=== PATIENT | female | born 1995 | race Caucasian/White ===

== ENCOUNTER 2020-01-06 15:56 | Outpatient (CLI) | payer OTHER ==
[~2020-01-06] VITALS: Ht 162.6 cm; Wt 86.8 kg
[2020-01-06 16:14] VITALS: BP 101/66; PULSE 122; TEMP 98.9
[2020-01-06] MEDS ORDERED: LIALDA 1.2 GM1.2 GM PO (16:26)
[2020-01-06] MEDS ORDERED: PROVENTIL0.09 MG/A1 IH (16:26)
[2020-01-06] MEDS ORDERED: PNV-DHA1 SGL PO (16:27)
[2020-01-06] MEDS ORDERED: TYLENOL 500MG500 MG PO (16:28)
[2020-01-06 16:30] VITALS: BP 103/62; PULSE 107
[2020-01-06 16:42] VITALS: PULSE 10
== END 2020-01-06 16:55 | disposition home or self-care (01) ==
LOC: LDRO 15:56
DX: O36.8130 Decreased fetal movements, third trimester, not applicable or unspecified (principal); O26.893 Other specified pregnancy related conditions, third trimester; R25.2 Cramp and spasm; Z3A.37 37 weeks gestation of pregnancy

== ENCOUNTER 2020-01-10 10:49 | Outpatient (CLI) | payer OTHER ==
[~2020-01-10] VITALS: Ht 162.6 cm; Wt 88.2 kg
[~2020-01-10 10:49] MED LIST: LIALDA 1.2 GM1.2 GM PO; PNV-DHA1 SGL PO; PROVENTIL0.09 MG/A1 IH; TYLENOL 500MG500 MG PO
--- NOTE | 2020-01-10 10:55 | NUR ---
1055- Pt arrives on unit ambulatory with complaints of cramping since 0300 last night and possible SROM. Pt into bathroom to change into gown. 1100- Pt into bed, EFM and TOCO on and tracing. O2 sat monitor on tracing maternal HR. Assessment completed. VSS, maternal HR elevated. 1116- SVE by this RN, amniotrace negative. 07/03/3, no fluid noted with exam.
[2020-01-10 11:05] VITALS: BP 106/64; PULSE 128; TEMP 98.2
[2020-01-10] MEDS ORDERED: PROTONIX20 MG PO (11:09)
[2020-01-10 11:38] VITALS: PULSE 101
--- NOTE | 2020-01-10 11:45 | NUR ---
1140- Discharge paperwork given and explained. Pt denies questions. 1145- Pt ambulates off unit in stable condition independently.
== END 2020-01-10 11:45 | disposition home or self-care (01) ==
LOC: LDRO 10:49 → LDR 10:49 → LDRO 11:45
DX: O42.92 Full-term premature rupture of membranes, unspecified as to length of time between rupture and onset of labor (principal); Z3A.37 37 weeks gestation of pregnancy; O26.893 Other specified pregnancy related conditions, third trimester; R25.2 Cramp and spasm
CPT/HCPCS: OP

== ENCOUNTER 2020-01-14 16:01 | Outpatient (CLI) | payer OTHER ==
[~2020-01-14] VITALS: Ht 162.6 cm; Wt 88.6 kg
--- NOTE | 2020-01-14 16:00 | NUR ---
Patient arrives ambulatory with spouse with complaints of contractions every 3-4 minutes and "bloody mucus". Contractions started around 1345. Patient deines ROM or vaginal bleeding. Reports normal movement. Patient changes into gown, EFM explained and placed. VS obtained. SVE per this RN 2-3/70/-2 with small amount of old, brown blood noted on exam glove. Patient repositioned WL and updated on plan of care. Dr. Holman on unit, reviews FHR strip and updated on patient. Orders to recheck in one hour and update physician.
[~2020-01-14 16:01] MED LIST changes: +PROTONIX20 MG PO
[2020-01-14 16:12] VITALS: BP 113/63; PULSE 125; TEMP 98.3
[2020-01-14 17:15] VITALS: BP 113/63; PULSE 125; TEMP 98.3
--- NOTE | 2020-01-14 17:50 | NUR ---
1649 - FHR deceleration to 135, baseline 150, recovering by 1650. 1659 - FHR tachycardic, up to 195. FHR returns to baseline at 1703. 1715 - SVE by Rohini Molina RN , reports new bloody show with exam. Pt appears very uncomfortable, breathing through contractions. Dr. Holman notified of repeat exam, pt current status, and previous deceleration and tachycardia episode. Physician acknowledges FHR strip, monitoring from home. Per physician, pt to remain on unit for an additonal hour of monitoring with repeat SVE at the end of that hour.
[2020-01-14 18:16] VITALS: BP 105/67; PULSE 16
--- NOTE | 2020-01-14 18:56 | NUR ---
181 - SVE 3+/70/-2. Old bloody show noted on exam glove. Dr. Holman notified. Per physician, discharge pt with instructions to go home and rest and drink plenty of water, or go for a walk. 184 - Pt provided handout on Early Labor, given instructions to go home and rest and drink lots of water or go for a walk. Return when contractions are regularly 2-3 minutes apart or cannot walk or talk through them. Pt verbalized understanding. 1849 - Pt and spouse left unit.
== END 2020-01-14 18:50 | disposition home or self-care (01) ==
LOC: LDRO 16:01 → LDR 16:19 → LDRO 18:50
DX: O34.30 Maternal care for cervical incompetence, unspecified trimester (principal); Z3A.00 Weeks of gestation of pregnancy not specified
CPT/HCPCS: OP

== ENCOUNTER 2020-01-14 20:47 | Outpatient (CLI) | payer OTHER ==
[~2020-01-14] VITALS: Ht 162.6 cm; Wt 89.1 kg
--- NOTE | 2020-01-14 20:45 | NUR ---
Ambulatory to [facility] for labor re-assessment, accompanied by spouse. Denies need for orientation stating "I was just here a few hours ago". Pt reports "we went out to eat, went to [employer], walked around. the contractions are alot stronger"
--- NOTE | 2020-01-14 20:55 | NUR ---
disharge plan discussed with pt: Percocet then home to rest. Pt states "I will not take Percocet, it makes me sleepy" Tylenol and Benadryl offered, pt refuses Benadryl. Explained to pt that we would like her to rest. She agrees to take tylenol.
[2020-01-14 21:47] VITALS: BP 112/67; PULSE 109; TEMP 98.4
== END 2020-01-14 21:30 | disposition home or self-care (01) ==
LOC: LDRO 20:47
DX: O62.0 Primary inadequate contractions (principal); Z3A.38 38 weeks gestation of pregnancy

== ENCOUNTER 2020-01-17 07:17 | Outpatient (CLI) | payer OTHER ==
[~2020-01-17] VITALS: Ht 162.6 cm; Wt 87.7 kg
--- NOTE | 2020-01-17 06:55 | NUR ---
Patient here with spouse via wheelchair, changed into gown, FHR/TOCO monitors placed and explained. Patient states she has been vladimir regular and has felt some leaking or dishcarge. Denies vaginal bleeding and decreased movement. Plan of care discussed. 0700: SVE-3-4/70/-2 and amniotest negative. Patient updated on plan of care. 0725: Dr. Holman at nurses station and reviewing FHR strip. Updated on patient and orders to recheck at one hour.
[2020-01-17 07:30] VITALS: BP 111/72; PULSE 103
--- NOTE | 2020-01-17 08:00 | NUR ---
SVE-3-4/[address]/-[address] Holman at nurses station and updated. Orders for patient to be discharged home. 0805: Patient off monitor. Discharge papers gone over and signed. 0814: Patient ambulatory off unit with spouse.
[2020-01-17 08:05] VITALS: BP 107/67; PULSE 95
[2020-01-18] MEDS ORDERED: MOTRIN 800800 MG/TAB PO (11:13)
== END 2020-01-17 08:14 | disposition home or self-care (01) ==
LOC: LDRO 07:17
DX: O62.9 Abnormality of forces of labor, unspecified (principal); Z3A.00 Weeks of gestation of pregnancy not specified

== ENCOUNTER 2020-01-17 18:24 | Inpatient (IN) | payer OTHER ==
[~2020-01-17] VITALS: Ht 162.6 cm; Wt 87.7 kg
[2020-01-17] VITALS (20 sets, daily range): BP systolic 93–126; BP diastolic 52–76; PULSE 95–121; TEMP 97.8–98.7
[2020-01-17 19:18] LABS: BASO # 0.1 (0.0-0.2); BASO % 0.3 % (0.0-2.0); EOS # 0.4 (0.0-0.7); EOS % 2.2 % (0-4.0); GRAN % 76.4 % (42.2-75.2); HEMOGLOBIN 11.6 g/dl (12.5-16.0); LYMPH % 12.8 % (20.0-51.0); MEAN CELL VOLUME 88 fl (80.0-100.0); MEAN CORPUSCULAR HEMOGLOBIN 28 pg (27.0-31.0); MEAN CORPUSCULAR HGB CONC 32 g/dl (33.0-37.0); MEAN PLATELET VOLUME 10.6 fl (7.4-10.4); MONO # 1.2 (0.1-0.6); MONO % 7.7 % (1.7-9.3); PLATELET COUNT 265 K/mm3 (130-400); RED BLOOD COUNT 4.11 M/mm3 (4.10-5.30); REDCELL DISTRIBUTION WIDTH-CV 14.6 % (11.5-14.5)
[2020-01-17 19:21] LABS: HEMATOCRIT 36.2 % (37.0-47.0)
--- NOTE | 2020-01-17 19:45 | NUR ---
193- Faraz AGUILAR CRNA IN ROOM FOR EPIDURAL PLACEMENT. 1931- PT SITTING UP AT BEDSIDE FOR EPIDURAL PLACEMENT. 1937-SINGLE SHOT GIVEN BY Faraz AGUILAR CRNA, PT TOLERATED WELL. 1941- TEST DOSE GIVEN BY Faraz AGUILAR CRNA, PT TOLERATED WELL. 1944- PT REPOSTIONED INTO SEMIFOWLERS FOLLOWING EPIDURAL PLACEMENT.
--- NOTE | 2020-01-17 20:15 | NUR ---
2010- ROLES IN ROOM, AROM PER ROLES AT 2010, CLEAR FLUID, SVE OF /-2. 2014- GTZ PLACED, CLEAR YELLOW URINE OUT.
--- NOTE | 2020-01-17 23:21 | NUR ---
ULISSES KRISHNAN'D, 225MLS CLEAR YELLOW URINE OUT.
--- NOTE | 2020-01-17 23:55 | NUR ---
2334- PT STATES INCREASED RECTAL PRESSURE AND URGE TO PUSH. SVE OF COMPLETE/+1. DR. DUMONT NOTIFIED OF IMPENDING DELIVERY, ON HER WAY TO THE HOSPITAL NOW. 2347- PT PERFORMS 1 PRACTICE PUSH WITH THIS NURSE, PUSHING WELL. 2348- DR. DUMONT IN ROOM FOR DELIVERY. 2350-SPONTANEOUS VAGINAL DELIVERY OF VIABLE BABY BOY THROUGH LOOSE NUCHAL CORD X1. BABY TO MOTHER'S CHEST, CORD CLAMPED BY DR. DUMONT, CUT BY FOB, BABY CARES ASSUMED BY Shana LEYVA RN. 2355- SPONTANEOUS DELIVERY OF INTACT PLACENTA. PITOCIN STARTED AT 333MLS PER PROTOCOL. SMALL RIGHT LABIAL LACERATION NOT REQUIRING STITCHES PER DR. DUMONT. RECOVERY STARTED.
[2020-01-18] VITALS (12 sets, daily range): BP systolic 94–121; BP diastolic 51–68; PULSE 85–104; TEMP 97.4–98.2
--- NOTE | 2020-01-18 04:20 | NUR ---
LEFT LEG REMAINS NUMB FROM EPIDURAL. PT UP TO BATHROOM VIA WHEELCHAIR, ABLE TO VOID 1000MLS CLEAR YELLOW URINE. PERICARE PROVIDED, TUCKS, PERIPAD, AND MESH UNDERWEAR ON. PT BACK TO WHEELCHAIR AND TRANSFERRED TO . EDUCATED TO HAVE ASSISTANCE BY NURSE BEFORE GOING TO THE BATHROOM NEXT TO MAKE SURE HER LEG IS WEIGHT BEARING, UNDERSTANDING VERBALIZED. ORIENTED TO ROOM.
--- NOTE | 2020-01-18 09:39 | NUR ---
Initial visit; Parents thanked Back Shoe Operator for offering congratulations and God's blessings for the of their son. Back Shoe Operator thanked family for choosing [facility].
[2020-01-18] MEDS ORDERED: MOTRIN 800800 MG/TAB PO (11:13)
[2020-01-19 07:57] VITALS: BP 105/61; PULSE 90; TEMP 98.4
--- NOTE | 2020-01-19 12:30 | NUR ---
Discharge instructions given, pt verbalizes understanding. No further questions noted. Bands matched and hugs tag removed.
== END 2020-01-19 13:00 | disposition home or self-care (01) | DRG 806 ==
LOC: LDRO 18:24 → OB 19:06 → LDR 19:06 → OB 01-18 04:30
PROVIDERS: Obstetrics & Gynecology; ADMIT Obstetrics & Gynecology
PROC: 10E0XZZ Delivery of Products of Conception, External Approach (ICD-10-PCS; principal; 2020-01-17)
PROC: 10907ZC Drainage of Amniotic Fluid, Therapeutic from Products of Conception, Via Natural or Artificial Opening (ICD-10-PCS; 2020-01-17)
DX: O99.52 Diseases of the respiratory system complicating childbirth (principal); K51.90 Ulcerative colitis, unspecified, without complications; Z37.0 Single live birth; O69.81X0 Labor and delivery complicated by cord around neck, without compression, not applicable or unspecified; O71.82 Other specified trauma to perineum and vulva; O99.62 Diseases of the digestive system complicating childbirth; J45.909 Unspecified asthma, uncomplicated; Z3A.38 38 weeks gestation of pregnancy
CPT/HCPCS: J2590; J2795; J7120

== ENCOUNTER 2020-05-25 13:00 | Outpatient (RCR) | payer OTHER ==
[2020-04-13 13:38] LABS: HEMATOCRIT 38.7 % (37.0-47.0); HEMOGLOBIN 12.5 g/dl (12.5-16.0); MEAN CELL VOLUME 86 fl (80.0-100.0); MEAN CORPUSCULAR HEMOGLOBIN 28 pg (27.0-31.0); MEAN CORPUSCULAR HGB CONC 32 g/dl (33.0-37.0); MEAN PLATELET VOLUME 9.2 fl (7.4-10.4); PLATELET COUNT 378 K/mm3 (130-400); RED BLOOD COUNT 4.48 M/mm3 (4.10-5.30); REDCELL DISTRIBUTION WIDTH-CV 15.7 % (11.5-14.5)
[2020-04-13 13:49] LABS: ALBUMIN 4.4 gm/dL (3.5-5.0); BILIRUBIN,TOTAL 0.4 mg/dL (0.0-1.0); CALCIUM 9.2 mg/dL (8.4-10.2); CREATININE, serum 0.87 (0.52-1.25); POTASSIUM 4.1 mmol/L (3.4-5.0); TOTAL PROTEIN 7.7 gm/dL (6.4-8.2)
[2020-04-13 14:12] VITALS: BP 108/73; PULSE 100; TEMP 98.4
[2020-04-13 14:45] VITALS: BP 93/60; PULSE 102
[2020-04-13 14:55] VITALS: BP 104/68; PULSE 101
[2020-04-13 15:05] VITALS: BP 104/58; PULSE 89
[2020-04-13 15:15] VITALS: BP 100/65; PULSE 90
[2020-04-13 15:45] VITALS: BP 100/65; PULSE 96
--- NOTE | 2020-04-13 15:50 | NUR ---
Pt is ready for departure. IV dc'd cath intact, dressing applied. Pt tolerated infusion well, she has remained 30 minutes post infusion and has had no adverse reaction. She was given appointment card for next two appointments. Pt denies any concerns at time of departure.
[2020-04-27 13:26] LABS: HEMOGLOBIN 11.6 g/dl (12.5-16.0); MEAN CELL VOLUME 86 fl (80.0-100.0); MEAN CORPUSCULAR HEMOGLOBIN 28 pg (27.0-31.0); MEAN CORPUSCULAR HGB CONC 33 g/dl (33.0-37.0); PLATELET COUNT 385 K/mm3 (130-400); RED BLOOD COUNT 4.11 M/mm3 (4.10-5.30); REDCELL DISTRIBUTION WIDTH-CV 15.1 % (11.5-14.5)
[2020-04-27 13:29] VITALS: BP 107/67; PULSE 88; TEMP 98.7
[2020-04-27 13:29] LABS: HEMATOCRIT 35.4 % (37.0-47.0)
[2020-04-27 13:48] LABS: ALBUMIN 4.1 gm/dL (3.5-5.0); BILIRUBIN,TOTAL 0.5 mg/dL (0.0-1.0); CALCIUM 9.3 mg/dL (8.4-10.2); CREATININE, serum 0.91 (0.52-1.25); POTASSIUM 4.5 mmol/L (3.4-5.0); TOTAL PROTEIN 7.2 gm/dL (6.4-8.2)
[2020-04-27 15:15] VITALS: BP 102/69; PULSE 91; TEMP 98.8
[~2020-05-25] VITALS: Ht 162.6 cm; Wt 77.0 kg
[~2020-05-25 13:00] MED LIST changes: +MOTRIN 800800 MG/TAB PO
[2020-05-25 13:15] LABS: BASO # 0.1 (0.0-0.2); BASO % 1.1 % (0.0-2.0); EOS # 1.4 (0.0-0.7); EOS % 15.4 % (0-4.0); GRAN # 4.5 (1.4-6.5); HEMATOCRIT 38.8 % (37.0-47.0); HEMOGLOBIN 12.4 g/dl (12.5-16.0); LYMPH # 2.5 (1.2-3.4); MEAN CELL VOLUME 88 fl (80.0-100.0); MEAN CORPUSCULAR HEMOGLOBIN 28 pg (27.0-31.0); MEAN CORPUSCULAR HGB CONC 32 g/dl (33.0-37.0); MEAN PLATELET VOLUME 9.5 fl (7.4-10.4); MONO # 0.7 (0.1-0.6); MONO % 7.3 % (1.7-9.3); PLATELET COUNT 411 K/mm3 (130-400); RED BLOOD COUNT 4.39 M/mm3 (4.10-5.30); REDCELL DISTRIBUTION WIDTH-CV 13.4 % (11.5-14.5)
[2020-05-25 13:28] LABS: ALBUMIN 4.4 gm/dL (3.5-5.0); BILIRUBIN,TOTAL 0.6 mg/dL (0.0-1.0); CALCIUM 9.4 mg/dL (8.4-10.2); CREATININE, serum 0.74 (0.52-1.25); POTASSIUM 4.2 mmol/L (3.4-5.0); TOTAL PROTEIN 7.5 gm/dL (6.4-8.2)
[2020-05-25 13:30] VITALS: BP 105/67; PULSE 97; TEMP 98.5
[2020-05-25 14:30] VITALS: BP 110/67; PULSE 90
== END 2020-05-30 15:03 | disposition home or self-care (01) ==
LOC: EUO 13:00
PROVIDERS: Internal Medicine Gastroenterology
DX: K51.90 Ulcerative colitis, unspecified, without complications (principal); Z79.899 Other long term (current) drug therapy
CPT/HCPCS: J1200; J2920; J2930; J3380; J7050

== ENCOUNTER 2020-07-20 13:10 | Outpatient (CLI) | payer OTHER ==
[~2020-07-20] VITALS: Ht 162.6 cm; Wt 79.8 kg
[2020-07-20 14:17] LABS: HEMATOCRIT 38.8 % (37.0-47.0); HEMOGLOBIN 12.5 g/dl (12.5-16.0); MEAN CELL VOLUME 86 fl (80.0-100.0); MEAN CORPUSCULAR HEMOGLOBIN 28 pg (27.0-31.0); MEAN CORPUSCULAR HGB CONC 32 g/dl (33.0-37.0); MEAN PLATELET VOLUME 9.5 fl (7.4-10.4); PLATELET COUNT 371 K/mm3 (130-400); RED BLOOD COUNT 4.53 M/mm3 (4.10-5.30); REDCELL DISTRIBUTION WIDTH-CV 13.9 % (11.5-14.5)
[2020-07-20 14:30] LABS: ALBUMIN 4.5 gm/dL (3.5-5.0); BILIRUBIN,TOTAL 0.5 mg/dL (0.0-1.0); CALCIUM 8.8 mg/dL (8.4-10.2); CREATININE, serum 0.71 (0.52-1.25); POTASSIUM 3.6 mmol/L (3.4-5.0); TOTAL PROTEIN 7.5 gm/dL (6.4-8.2)
[2020-07-20 15:55] VITALS: BP 91/56; PULSE 57; TEMP 98.7
== END 2020-07-20 16:27 | disposition home or self-care (01) ==
LOC: EUO 13:10
PROVIDERS: Internal Medicine Gastroenterology
DX: K51.90 Ulcerative colitis, unspecified, without complications (principal); Z79.899 Other long term (current) drug therapy
CPT/HCPCS: J3380; J7050

== ENCOUNTER 2020-09-14 13:39 | Outpatient (CLI) | payer OTHER ==
[~2020-09-14] VITALS: Ht 162.6 cm; Wt 80.7 kg
[2020-09-14 14:30] LABS: ALBUMIN 4.1 gm/dL (3.5-5.0); BILIRUBIN,TOTAL 0.2 mg/dL (0.0-1.0); CALCIUM 9.2 mg/dL (8.4-10.2); CREATININE, serum 0.68 (0.52-1.25); TOTAL PROTEIN 7.4 gm/dL (6.4-8.2)
[2020-09-14 14:34] LABS: HEMATOCRIT 41.4 % (37.0-47.0); MEAN CELL VOLUME 89 fl (80.0-100.0); MEAN CORPUSCULAR HEMOGLOBIN 28 pg (27.0-31.0); MEAN CORPUSCULAR HGB CONC 31 g/dl (33.0-37.0); MEAN PLATELET VOLUME 10.1 fl (7.4-10.4); PLATELET COUNT 356 K/mm3 (130-400); RED BLOOD COUNT 4.66 M/mm3 (4.10-5.30); REDCELL DISTRIBUTION WIDTH-CV 16.2 % (11.5-14.5)
[2020-09-14 15:34] VITALS: BP 104/69; PULSE 85; TEMP 97.9
[2020-09-14] MEDS ORDERED: ZYRTEC 10MG10 MG PO (16:04)
== END 2020-09-14 16:05 | disposition home or self-care (01) ==
LOC: EUO 13:39
PROVIDERS: Internal Medicine Gastroenterology
DX: K51.90 Ulcerative colitis, unspecified, without complications (principal); Z79.899 Other long term (current) drug therapy
CPT/HCPCS: J2930; J3380; J7050

== ENCOUNTER 2021-01-04 14:01 | Outpatient (CLI) | payer OTHER ==
[~2021-01-04] VITALS: Ht 162.6 cm; Wt 79.9 kg
[~2021-01-04 14:01] MED LIST changes: +ZYRTEC 10MG10 MG PO
[2021-01-04 14:47] LABS: HEMATOCRIT 40.3 % (37.0-47.0); HEMOGLOBIN 13.3 g/dl (12.5-16.0); MEAN CELL VOLUME 88 fl (80.0-100.0); MEAN CORPUSCULAR HEMOGLOBIN 29 pg (27.0-31.0); MEAN CORPUSCULAR HGB CONC 33 g/dl (33.0-37.0); MEAN PLATELET VOLUME 9.8 fl (7.4-10.4); PLATELET COUNT 349 K/mm3 (130-400); RED BLOOD COUNT 4.57 M/mm3 (4.10-5.30); REDCELL DISTRIBUTION WIDTH-CV 13.5 % (11.5-14.5)
[2021-01-04 14:50] VITALS: BP 109/71; PULSE 87; TEMP 98.1
[2021-01-04 14:52] LABS: ALBUMIN 4.2 gm/dL (3.5-5.0); BILIRUBIN,TOTAL 0.5 mg/dL (0.0-1.0); CALCIUM 9.2 mg/dL (8.4-10.2); CREATININE, serum 0.85 (0.52-1.25); TOTAL PROTEIN 7.3 gm/dL (6.4-8.2)
[2021-01-04 16:23] VITALS: PULSE 89
== END 2021-01-04 16:59 | disposition home or self-care (01) ==
LOC: EUO 14:01
PROVIDERS: Internal Medicine Gastroenterology
DX: K51.90 Ulcerative colitis, unspecified, without complications (principal); Z79.899 Other long term (current) drug therapy
CPT/HCPCS: J2920; J3380; J7050

== ENCOUNTER 2021-03-01 13:54 | Outpatient (CLI) | payer OTHER ==
[~2021-03-01] VITALS: Ht 162.6 cm; Wt 78.3 kg
[2021-03-01 14:10] LABS: HEMATOCRIT 40.9 % (37.0-47.0); HEMOGLOBIN 14.1 g/dl (12.5-16.0); MEAN CELL VOLUME 87 fl (80.0-100.0); MEAN CORPUSCULAR HEMOGLOBIN 30 pg (27.0-31.0); MEAN CORPUSCULAR HGB CONC 35 g/dl (33.0-37.0); MEAN PLATELET VOLUME 9.7 fl (7.4-10.4); PLATELET COUNT 324 K/mm3 (130-400); RED BLOOD COUNT 4.73 M/mm3 (4.10-5.30); REDCELL DISTRIBUTION WIDTH-CV 12.8 % (11.5-14.5)
[2021-03-01] MEDS ORDERED: ONE-A-DAY ESSE1 EACH PO (14:24)
[2021-03-01] MEDS ORDERED: ENTYVIO IV (14:24)
[2021-03-01] MEDS ORDERED: MIRENA52 MG IY (14:25)
[2021-03-01 14:30] VITALS: BP 93/65; PULSE 90; TEMP 98.7
[2021-03-01 15:15] LABS: ALBUMIN 4.7 gm/dL (3.5-5.0); BILIRUBIN,TOTAL 0.8 mg/dL (0.0-1.0); CALCIUM 9.6 mg/dL (8.4-10.2); CREATININE, serum 0.91 (0.52-1.25); POTASSIUM 3.8 mmol/L (3.4-5.0); TOTAL PROTEIN 7.8 gm/dL (6.4-8.2)
== END 2021-03-01 16:17 | disposition home or self-care (01) ==
LOC: EUO 13:54
PROVIDERS: Internal Medicine Gastroenterology
DX: Z79.899 Other long term (current) drug therapy (principal)
CPT/HCPCS: J2920; J3380; J7050

== ENCOUNTER 2021-04-26 13:46 | Outpatient (CLI) | payer OTHER ==
[~2021-04-26 13:46] MED LIST changes: +ENTYVIO IV; +MIRENA52 MG IY; +ONE-A-DAY ESSE1 EACH PO
[2021-04-26 14:38] LABS: BASO # 0.1 K/mm3 (0.0-0.2); BASO % 1.2 % (0.0-2.0); EOS # 1.1 K/mm3 (0.0-0.7); EOS % 16.1 % (0-4.0); GRAN # 2.8 K/mm3 (1.4-6.5); GRAN % 41.8 % (42.2-75.2); HEMATOCRIT 42.4 % (37.0-47.0); HEMOGLOBIN 14.2 g/dl (12.5-16.0); LYMPH # 2.2 K/mm3 (1.2-3.4); LYMPH % 31.7 % (20.0-51.0); MEAN CELL VOLUME 89 fl (80.0-100.0); MEAN CORPUSCULAR HEMOGLOBIN 30 pg (27.0-31.0); MEAN CORPUSCULAR HGB CONC 34 g/dl (33.0-37.0); MEAN PLATELET VOLUME 9.5 fl (7.4-10.4); MONO # 0.6 K/mm3 (0.1-0.6); MONO % 9.1 % (1.7-9.3); PLATELET COUNT 323 K/mm3 (130-400); RED BLOOD COUNT 4.79 M/mm3 (4.10-5.30); REDCELL DISTRIBUTION WIDTH-CV 12.6 % (11.5-14.5)
[2021-04-26 15:00] LABS: ALBUMIN 4.1 gm/dL (3.5-5.0); BILIRUBIN,TOTAL 0.4 mg/dL (0.2-1.2); CALCIUM 9.7 mg/dL (8.4-10.2); CREATININE, serum 0.85 mg/dL (0.57-1.11); TOTAL PROTEIN 7.4 gm/dL (6.2-8.1)
[2021-04-26 15:20] VITALS: BP 109/73; PULSE 84; TEMP 98.5
== END 2021-04-26 17:03 ==
LOC: EUO 13:46
PROVIDERS: Internal Medicine Gastroenterology
DX: K51.90 Ulcerative colitis, unspecified, without complications (principal)
CPT/HCPCS: J2920; J3380; J7050

== ENCOUNTER 2021-06-25 14:05 | Outpatient (CLI) | payer OTHER ==
[~2021-06-25] VITALS: Ht 162.6 cm; Wt 79.7 kg
[2021-06-25 14:37] LABS: BASO # 0.1 K/mm3 (0.0-0.2); BASO % 1.2 % (0.0-2.0); EOS # 0.6 K/mm3 (0.0-0.7); EOS % 7.8 % (0.0-4.0); GRAN # 3.6 K/mm3 (1.4-6.5); GRAN % 43.9 % (42.2-75.2); HEMATOCRIT 42.7 % (37.0-47.0); HEMOGLOBIN 14.7 g/dl (12.5-16.0); LYMPH # 3.3 K/mm3 (1.2-3.4); LYMPH % 40.6 % (20.0-51.0); MEAN CELL VOLUME 87 fl (80.0-100.0); MEAN CORPUSCULAR HEMOGLOBIN 30 pg (27-31); MEAN CORPUSCULAR HGB CONC 34 g/dl (33.0-37.0); MEAN PLATELET VOLUME 9.5 fl (7.4-10.4); MONO # 0.5 K/mm3 (0.1-0.6); MONO % 6.1 % (1.7-9.3); PLATELET COUNT 352 K/mm3 (130-400); RED BLOOD COUNT 4.91 M/mm3 (4.10-5.30); REDCELL DISTRIBUTION WIDTH-CV 12.7 % (11.5-14.5)
[2021-06-25 15:29] VITALS: BP 99/68; PULSE 90; TEMP 98.1
--- NOTE | 2021-06-25 15:32 | NUR ---
Pt refused benadryl due to "it makes me sleepy."
[2021-06-25 15:47] LABS: ALBUMIN 4.3 gm/dL (3.5-5.0); BILIRUBIN,TOTAL 0.5 mg/dL (0.2-1.2); CALCIUM 9.5 mg/dL (8.4-10.2); CREATININE, serum 0.84 mg/dL (0.57-1.11); TOTAL PROTEIN 7.5 gm/dL (6.2-8.1)
== END 2021-06-25 15:51 ==
LOC: EUO 14:05
PROVIDERS: Internal Medicine Gastroenterology
DX: K51.90 Ulcerative colitis, unspecified, without complications (principal)
CPT/HCPCS: J2920; J3380; J7050

== ENCOUNTER 2021-08-22 14:12 | Outpatient (CLI) | payer OTHER ==
[~2021-08-22] VITALS: Ht 162.6 cm; Wt 79.4 kg
[2021-08-22 14:56] LABS: HEMOGLOBIN 14.4 g/dl (12.5-16.0); MEAN CELL VOLUME 87 fl (80.0-100.0); MEAN CORPUSCULAR HEMOGLOBIN 30 pg (27-31); MEAN CORPUSCULAR HGB CONC 34 g/dl (33.0-37.0); MEAN PLATELET VOLUME 9.3 fl (7.4-10.4); PLATELET COUNT 330 K/mm3 (130-400); RED BLOOD COUNT 4.84 M/mm3 (4.10-5.30); REDCELL DISTRIBUTION WIDTH-CV 12.3 % (11.5-14.5)
[2021-08-22 15:16] LABS: BILIRUBIN,TOTAL 0.6 mg/dL (0.2-1.2); CALCIUM 9.2 mg/dL (8.4-10.2); CREATININE, serum 0.92 mg/dL (0.57-1.11); POTASSIUM 4.1 mmol/L (3.5-4.5); TOTAL PROTEIN 6.9 gm/dL (6.2-8.1)
[2021-08-22 16:15] VITALS: BP 100/61; PULSE 92; TEMP 98.8
== END 2021-08-22 17:41 ==
LOC: EUO 14:12
PROVIDERS: Internal Medicine Gastroenterology
DX: K51.90 Ulcerative colitis, unspecified, without complications (principal)
CPT/HCPCS: J2920; J3380; J7050

== ENCOUNTER 2021-10-24 09:43 | Outpatient (CLI) | payer OTHER ==
[~2021-10-24] VITALS: Ht 162.6 cm; Wt 78.9 kg
[2021-10-24 10:16] LABS: BASO # 0.1 K/mm3 (0.0-0.2); BASO % 1.5 % (0.0-2.0); EOS # 0.8 K/mm3 (0.0-0.7); EOS % 9.9 % (0.0-4.0); GRAN # 4.2 K/mm3 (1.4-6.5); GRAN % 49.7 % (42.2-75.2); HEMATOCRIT 41.2 % (37.0-47.0); LYMPH # 2.8 K/mm3 (1.2-3.4); LYMPH % 32.4 % (20.0-51.0); MEAN CELL VOLUME 87 fl (80.0-100.0); MEAN CORPUSCULAR HEMOGLOBIN 30 pg (27-31); MEAN CORPUSCULAR HGB CONC 34 g/dl (33.0-37.0); MEAN PLATELET VOLUME 9.3 fl (7.4-10.4); MONO # 0.5 K/mm3 (0.1-0.6); MONO % 6.4 % (1.7-9.3); PLATELET COUNT 316 K/mm3 (130-400); RED BLOOD COUNT 4.73 M/mm3 (4.10-5.30); REDCELL DISTRIBUTION WIDTH-CV 12.5 % (11.5-14.5)
[2021-10-24 10:31] VITALS: BP 100/66; PULSE 14; TEMP 98.5
[2021-10-24 10:32] LABS: BILIRUBIN,TOTAL 0.7 mg/dL (0.2-1.2); CALCIUM 9.2 mg/dL (8.4-10.2); CREATININE, serum 0.82 mg/dL (0.57-1.11); POTASSIUM 4.3 mmol/L (3.5-4.5); TOTAL PROTEIN 6.7 gm/dL (6.2-8.1)
== END 2021-10-24 18:00 ==
LOC: EUO 09:43
PROVIDERS: Internal Medicine Gastroenterology
DX: K51.90 Ulcerative colitis, unspecified, without complications (principal)
CPT/HCPCS: J2920; J3380; J7050

== ENCOUNTER → 2021-12-19 | Outpatient (CLI) | payer OTHER ==
[~2021-12-19] VITALS: Ht 162.6 cm; Wt 80.2 kg
[2021-12-19 14:09] LABS: BASO # 0.1 K/mm3 (0.0-0.2); BASO % 0.9 % (0.0-2.0); EOS # 0.7 K/mm3 (0.0-0.7); EOS % 6.8 % (0.0-4.0); GRAN # 5.6 K/mm3 (1.4-6.5); GRAN % 53.5 % (42.2-75.2); HEMATOCRIT 42.8 % (37.0-47.0); HEMOGLOBIN 14.4 g/dl (12.5-16.0); LYMPH # 3.3 K/mm3 (1.2-3.4); LYMPH % 32.2 % (20.0-51.0); MEAN CELL VOLUME 89 fl (80.0-100.0); MEAN CORPUSCULAR HEMOGLOBIN 30 pg (27-31); MEAN CORPUSCULAR HGB CONC 34 g/dl (33.0-37.0); MEAN PLATELET VOLUME 9.4 fl (7.4-10.4); MONO # 0.7 K/mm3 (0.1-0.6); MONO % 6.4 % (1.7-9.3); PLATELET COUNT 338 K/mm3 (130-400); RED BLOOD COUNT 4.83 M/mm3 (4.10-5.30); REDCELL DISTRIBUTION WIDTH-CV 12.3 % (11.5-14.5)
[2021-12-19 14:28] LABS: BILIRUBIN,TOTAL 0.9 mg/dL (0.2-1.2); CALCIUM 9.5 mg/dL (8.4-10.2); CREATININE, serum 0.82 mg/dL (0.57-1.11); POTASSIUM 3.9 mmol/L (3.5-4.5)
[2021-12-19 15:18] VITALS: BP 100/63; PULSE 81; TEMP 98.4
== END ==
LOC: EUO 13:35
PROVIDERS: Internal Medicine Gastroenterology
DX: K51.90 Ulcerative colitis, unspecified, without complications (principal)
CPT/HCPCS: J2930; J3380; J7050

== ENCOUNTER 2022-02-13 13:39 | Outpatient (CLI) | payer OTHER ==
[~2022-02-13] VITALS: Ht 162.6 cm; Wt 79.1 kg
[2022-02-13 14:25] LABS: BASO # 0.1 K/mm3 (0.0-0.2); BASO % 1.4 % (0.0-2.0); EOS # 0.8 K/mm3 (0.0-0.7); EOS % 9.8 % (0.0-4.0); GRAN # 3.1 K/mm3 (1.4-6.5); GRAN % 39.6 % (42.2-75.2); HEMATOCRIT 41.6 % (37.0-47.0); HEMOGLOBIN 14.3 g/dl (12.5-16.0); LYMPH # 3.3 K/mm3 (1.2-3.4); LYMPH % 42.1 % (20.0-51.0); MEAN CELL VOLUME 88 fl (80.0-100.0); MEAN CORPUSCULAR HEMOGLOBIN 30 pg (27-31); MEAN CORPUSCULAR HGB CONC 34 g/dl (33.0-37.0); MEAN PLATELET VOLUME 9.2 fl (7.4-10.4); MONO # 0.5 K/mm3 (0.1-0.6); MONO % 6.8 % (1.7-9.3); PLATELET COUNT 364 K/mm3 (130-400); RED BLOOD COUNT 4.75 M/mm3 (4.10-5.30)
[2022-02-13 14:37] VITALS: BP 108/72; PULSE 87; TEMP 97.3
[2022-02-13 14:44] LABS: CREATININE, serum 0.84 mg/dL (0.57-1.11)
[2022-02-13 14:45] LABS: ALBUMIN 4.1 gm/dL (3.5-5.0); BILIRUBIN,TOTAL 0.4 mg/dL (0.2-1.2); CALCIUM 9.4 mg/dL (8.4-10.2); TOTAL PROTEIN 7.3 gm/dL (6.2-8.1)
== END 2022-02-13 15:49 ==
LOC: EUO 13:39
PROVIDERS: Internal Medicine Gastroenterology
DX: K51.311 Ulcerative (chronic) rectosigmoiditis with rectal bleeding (principal)
CPT/HCPCS: J2920; J3380; J7050

== ENCOUNTER 2022-04-17 12:37 | Outpatient (CLI) | payer OTHER ==
[~2022-04-17] VITALS: Ht 162.6 cm; Wt 80.4 kg
[2022-04-17 13:16] LABS: BASO # 0.1 K/mm3 (0.0-0.2); BASO % 0.8 % (0.0-2.0); EOS # 0.8 K/mm3 (0.0-0.7); GRAN % 50.4 % (42.2-75.2); HEMATOCRIT 42.8 % (37.0-47.0); HEMOGLOBIN 14.4 g/dl (12.5-16.0); LYMPH # 3.4 K/mm3 (1.2-3.4); LYMPH % 34.3 % (20.0-51.0); MEAN CELL VOLUME 88 fl (80.0-100.0); MEAN CORPUSCULAR HEMOGLOBIN 30 pg (27-31); MEAN CORPUSCULAR HGB CONC 34 g/dl (33.0-37.0); MEAN PLATELET VOLUME 9.3 fl (7.4-10.4); MONO # 0.6 K/mm3 (0.1-0.6); MONO % 6.2 % (1.7-9.3); PLATELET COUNT 327 K/mm3 (130-400); RED BLOOD COUNT 4.85 M/mm3 (4.10-5.30); REDCELL DISTRIBUTION WIDTH-CV 12.4 % (11.5-14.5)
[2022-04-17 13:23] VITALS: BP 107/67; PULSE 106; TEMP 98.6
[2022-04-17 13:31] LABS: ALBUMIN 4.1 gm/dL (3.5-5.0); BILIRUBIN,TOTAL 0.5 mg/dL (0.2-1.2); CALCIUM 9.1 mg/dL (8.4-10.2); CREATININE, serum 0.89 mg/dL (0.57-1.11); POTASSIUM 3.6 mmol/L (3.5-4.5); TOTAL PROTEIN 7.1 gm/dL (6.2-8.1)
== END 2022-04-17 16:40 | disposition home or self-care (01) ==
LOC: EUO 12:37
PROVIDERS: Internal Medicine Gastroenterology
DX: K51.90 Ulcerative colitis, unspecified, without complications (principal)
CPT/HCPCS: J2920; J3380; J7050

== ENCOUNTER 2022-06-12 12:38 | Outpatient (CLI) | payer OTHER ==
[2022-06-12 13:19] LABS: BASO # 0.1 K/mm3 (0.0-0.2); BASO % 0.9 % (0.0-2.0); EOS # 0.6 K/mm3 (0.0-0.7); EOS % 5.5 % (0.0-4.0); GRAN # 6.6 K/mm3 (1.4-6.5); GRAN % 57.6 % (42.2-75.2); HEMATOCRIT 44.1 % (37.0-47.0); HEMOGLOBIN 15.2 g/dl (12.5-16.0); LYMPH # 3.4 K/mm3 (1.2-3.4); LYMPH % 29.6 % (20.0-51.0); MEAN CELL VOLUME 88 fl (80.0-100.0); MEAN CORPUSCULAR HEMOGLOBIN 30 pg (27-31); MEAN CORPUSCULAR HGB CONC 35 g/dl (33.0-37.0); MEAN PLATELET VOLUME 9.2 fl (7.4-10.4); MONO # 0.7 K/mm3 (0.1-0.6); PLATELET COUNT 371 K/mm3 (130-400); RED BLOOD COUNT 5.04 M/mm3 (4.10-5.30); REDCELL DISTRIBUTION WIDTH-CV 12.4 % (11.5-14.5)
[2022-06-12 13:32] LABS: ALBUMIN 4.2 gm/dL (3.5-5.0); CALCIUM 10.1 mg/dL (8.4-10.2); CREATININE, serum 0.8 mg/dL (0.57-1.11); TOTAL PROTEIN 7.6 gm/dL (6.2-8.1)
[2022-06-12 13:48] VITALS: BP 106/71; PULSE 77; TEMP 98.8
[2022-06-12 13:53] LABS: BILIRUBIN,TOTAL 0.7 mg/dL (0.2-1.2)
[2022-06-12 15:16] VITALS: BP 105/72; PULSE 82; TEMP 98.1
[2022-06-12] MEDS ORDERED: EFFEXOR XR37.5 MG/CA PO (15:17)
[2022-06-12] MEDS ORDERED: SINGULAIR 110 MG/TAB PO (15:19)
[2022-06-12] MEDS ORDERED: FLOVENT 110MCG7.9 GM IH (15:19)
--- NOTE | 2022-06-12 15:55 | NUR ---
Pt tolerated infusion without issue. IV DC'd, site wrapped with coban. Pt exits dept with steady gait. Message was left with GI office to request order clarification and new PA.
== END 2022-06-12 15:55 | disposition home or self-care (01) ==
LOC: EUO 12:38
PROVIDERS: Internal Medicine Gastroenterology
DX: K51.90 Ulcerative colitis, unspecified, without complications (principal)
CPT/HCPCS: J2920; J3380; J7050

== ENCOUNTER 2022-10-15 12:44 | Outpatient (CLI) | payer OTHER ==
[~2022-10-15] VITALS: Ht 162.6 cm; Wt 79.0 kg
[~2022-10-15 12:44] MED LIST changes: +EFFEXOR XR37.5 MG/CA PO; +FLOVENT 110MCG7.9 GM IH; +SINGULAIR 110 MG/TAB PO
[2022-10-15 13:11] LABS: BASO # 0.1 K/mm3 (0.0-0.2); BASO % 0.7 % (0.0-2.0); EOS # 0.7 K/mm3 (0.0-0.7); EOS % 4.7 % (0.0-4.0); GRAN # 9.5 K/mm3 (1.4-6.5); GRAN % 67.4 % (42.2-75.2); HEMATOCRIT 40.4 % (37.0-47.0); LYMPH # 2.9 K/mm3 (1.2-3.4); MEAN CELL VOLUME 89 fl (80.0-100.0); MEAN CORPUSCULAR HEMOGLOBIN 31 pg (27-31); MEAN CORPUSCULAR HGB CONC 35 g/dl (33.0-37.0); MEAN PLATELET VOLUME 9.2 fl (7.4-10.4); MONO # 0.8 K/mm3 (0.1-0.6); MONO % 5.9 % (1.7-9.3); PLATELET COUNT 341 K/mm3 (130-400); RED BLOOD COUNT 4.53 M/mm3 (4.10-5.30); REDCELL DISTRIBUTION WIDTH-CV 12.1 % (11.5-14.5)
[2022-10-15 13:26] VITALS: BP 106/66; PULSE 65; TEMP 98.7
[2022-10-15 13:34] LABS: ALBUMIN 3.9 gm/dL (3.5-5.0); BILIRUBIN,TOTAL 0.6 mg/dL (0.2-1.2); CALCIUM 9.3 mg/dL (8.4-10.2); CREATININE, serum 0.78 mg/dL (0.57-1.11); POTASSIUM 3.9 mmol/L (3.5-4.5); TOTAL PROTEIN 6.7 gm/dL (6.2-8.1)
== END 2022-10-15 14:49 | disposition home or self-care (01) ==
LOC: EUO 12:44
PROVIDERS: Internal Medicine Gastroenterology
DX: Z51.81 Encounter for therapeutic drug level monitoring (principal)
CPT/HCPCS: J2930; J3380; J7050

== ENCOUNTER 2023-04-10 13:48 | Outpatient (CLI) | payer OTHER ==
[~2023-04-10] VITALS: Ht 162.6 cm; Wt 73.1 kg
[2023-04-10 14:16] LABS: BASO # 0.1 K/mm3 (0.0-0.2); BASO % 1.3 % (0.0-2.0); EOS # 0.6 K/mm3 (0.0-0.7); EOS % 6.8 % (0.0-4.0); GRAN # 4.6 K/mm3 (1.4-6.5); GRAN % 51.8 % (42.2-75.2); HEMATOCRIT 42.4 % (37.0-47.0); HEMOGLOBIN 14.7 g/dl (12.5-16.0); LYMPH # 3.1 K/mm3 (1.2-3.4); LYMPH % 34.5 % (20.0-51.0); MEAN CELL VOLUME 90 fl (80.0-100.0); MEAN CORPUSCULAR HEMOGLOBIN 31 pg (27-31); MEAN CORPUSCULAR HGB CONC 35 g/dl (33.0-37.0); MEAN PLATELET VOLUME 9.2 fl (7.4-10.4); MONO # 0.5 K/mm3 (0.1-0.6); MONO % 5.3 % (1.7-9.3); PLATELET COUNT 377 K/mm3 (130-400); RED BLOOD COUNT 4.71 M/mm3 (4.10-5.30)
[2023-04-10 14:21] VITALS: BP 106/69; PULSE 93; TEMP 98.9
[2023-04-10 14:31] LABS: ALBUMIN 4.3 gm/dL (3.5-5.0); BILIRUBIN,TOTAL 0.5 mg/dL (0.2-1.2); CALCIUM 9.7 mg/dL (8.4-10.2); CREATININE, serum 0.86 mg/dL (0.57-1.11); POTASSIUM 3.7 mmol/L (3.5-4.5); TOTAL PROTEIN 7.5 gm/dL (6.2-8.1)
--- NOTE | 2023-04-10 15:36 | NUR ---
PT TOLERATED ENTYVIO INFUSION WELL. PT AMBULATED TO [facility] INDEPENDENTLY FOLLOWING INFUSION. IV DISCONTINUED AND PT TOLERATED PO FOOD AND FLUID DURING INFUSION. PT FREE FROM ACUTE CONCERNS AND COMPLAINTS AT TIME OF DISCHARGE.
== END 2023-04-10 15:30 | disposition home or self-care (01) ==
LOC: EUO 13:48
PROVIDERS: Internal Medicine Gastroenterology
DX: K51.90 Ulcerative colitis, unspecified, without complications (principal)
CPT/HCPCS: J2920; J3380; J7050

== ENCOUNTER 2023-06-05 09:56 | Outpatient (CLI) | payer OTHER ==
[~2023-06-05] VITALS: Ht 162.6 cm; Wt 78.6 kg
[2023-06-05 10:54] LABS: BASO # 0.1 K/mm3 (0.0-0.2); BASO % 1.5 % (0.0-2.0); GRAN # 4.3 K/mm3 (1.4-6.5); GRAN % 48.6 % (42.2-75.2); HEMATOCRIT 43.1 % (37.0-47.0); HEMOGLOBIN 14.7 g/dl (12.5-16.0); LYMPH # 2.8 K/mm3 (1.2-3.4); LYMPH % 31.2 % (20.0-51.0); MEAN CELL VOLUME 90 fl (80.0-100.0); MEAN CORPUSCULAR HEMOGLOBIN 31 pg (27-31); MEAN CORPUSCULAR HGB CONC 34 g/dl (33.0-37.0); MEAN PLATELET VOLUME 9.2 fl (7.4-10.4); MONO # 0.7 K/mm3 (0.1-0.6); MONO % 7.5 % (1.7-9.3); PLATELET COUNT 336 K/mm3 (130-400); RED BLOOD COUNT 4.79 M/mm3 (4.10-5.30)
[2023-06-05 11:09] LABS: ALBUMIN 3.9 gm/dL (3.5-5.0); BILIRUBIN,TOTAL 0.5 mg/dL (0.2-1.2); CALCIUM 9.2 mg/dL (8.4-10.2); CREATININE, serum 0.79 mg/dL (0.57-1.11); POTASSIUM 4.2 mmol/L (3.5-4.5); TOTAL PROTEIN 6.8 gm/dL (6.2-8.1)
[2023-06-05 11:58] VITALS: BP 102/67; PULSE 77; TEMP 98
--- NOTE | 2023-06-05 13:08 | NUR ---
pt tolerated infusion well. vs remained within normal limtis and pt remained free from acute concerns and complaints. IV discontinued upon discharge and pt ambulated independently to main exit. next appointment scheduled.
== END 2023-06-05 13:09 | disposition home or self-care (01) ==
LOC: EUO 09:56
PROVIDERS: Internal Medicine Gastroenterology
DX: K51.90 Ulcerative colitis, unspecified, without complications (principal)
CPT/HCPCS: J2920; J3380; J7050